=== PATIENT | female | born 1955 | race Caucasian/White ===

== ENCOUNTER 2022-12-01 10:34 | Outpatient (CLI) | payer OTHER ==
--- NOTE | 2022-12-01 12:46 | Mammography Report ---
UNILATERAL RIGHT DIGITAL DIAGNOSTIC MAMMOGRAM 3D/2D WITH SPOT COMPRESSION: 12/01/2022 CLINICAL: Patient returns today to evaluate an architectural distortion in the right breast. Comparison is made to exams dated: 10/17/2017 mammogram, 03/31/2016 mammogram, 10/24/2014 mammogram, a nd 03/18/2013 mammogram - [facility]. There are scattered areas of fibroglandular density in the right breast (category b / 25%-50% glandul ar tissue). There is a new architectural distortion in the right breast at 9 o'clock middle depth. No other significant masses or calcifications are seen in the breast. IMPRESSION: SUSPICIOUS OF MALIGNANCY The new architectural distortion in the right breast is suspicious of malignancy. A stereotactic bio psy is recommended. Based on the Tyrer Cuzick model (a risk assessment model) the patients lifetime risk is 12.7% and he r 10 year risk is 6.4%. According to the ACR, ACS, and NCCN guidelines, an annual breast MRI exam graham ng with mammogram is recommended if the patients lifetime risk is 20% or greater. This exam was interpreted at Station ID: [id number]. NOTE: For mammograms, a report in lay terms will be sent to the patient. Approximately 15% of breast malignancies will not be visualized mammographically. In the management of a palpable breast mass, a negative mammogram must not discourage biopsy of a clinically suspicious lesion. Electronically Signed By: Jose E Patterson M.D., jr/marla:12/01/2022 11:24:04 ACR BI-RADS Category 4: Suspicious abnormality 3344F PARENCHYMAL PATTERN: (A) - The breast(s) demonstrate(s) scattered fibroglandular densities. BI-RADS CATEGORY: (4) - 4 Biopsy [id number] Immediate follow-up LATERALITY: (R)
== END 2022-12-01 10:35 | disposition home or self-care (01) ==
LOC: DI 10:34
PROVIDERS: ATTEND Nurse Practitioner Family
DX: R92.8 Other abnormal and inconclusive findings on diagnostic imaging of breast (principal)

== ENCOUNTER 2022-12-13 07:49 | Outpatient (CLI) | payer OTHER ==
[2022-12-13] MEDS ORDERED: LIDOCAINE-MPF 1% 5 ML VIAL ONE (08:08)
[2022-12-13] MEDS ORDERED: LIDOCAINE 1%-EPI 1:100000 20 ML MDV ONE (08:08)
[2022-12-13] MEDS ORDERED: LIDOCAINE-MPF 1% 5 ML VIAL SUBQ STA (10:09)
[2022-12-13] MEDS ORDERED: LIDOCAINE 1%-EPI 1:100000 20 ML MDV SUBQ ONE (10:19)
--- NOTE | 2022-12-16 13:17 | Mammography Report ---
STEREOTACTIC GUIDED BIOPSY RIGHT BREAST USING VACUUM DEVICE WITH MARKING DEVICE INSERTED- POST-PROCED URE IMAGING FOR MARKER PLACEMENT: 12/13/2022 CLINICAL: Right breast stereotactic biopsy. Correlation is made to exams dated: 12/01/2022 mammogram, 11/09/2022 mammogram - [facility], 10/17/2017 mammogram, and 03/31/2016 mammogram - [facility]. A stereotactic guided biopsy was performed for the area of architectural distortion located in the ri ght breast at 9-10 o'clock middle depth. This was described on the previous mammography report. The skin was prepped in the usual manner. Local anesthetic was administered to the access site. A skin louis was made in the breast. The abnormality was approached from the lateral aspect. A 9 gauge bio psy needle was placed adjacent to the abnormality under computer guidance and confirmatory stereotact ic mammography images were obtained to document needle placement. Once the needle was documented to be in the correct location, five specimens were obtained using a vacuum assisted device. A clip was inserted into the biopsy cavity. Post procedure imaging demonstrates the location device at the targ eted area. The specimens were sent to the laboratory for pathological analysis. IMPRESSION: STEREOTACTIC GUIDED BIOPSY BENIGN Stereotactic guided biopsy of the area of architectural distortion in the right breast at 10 o'clock middle depth was successful. Pathology indicates sclerosing adenosis with microcalcifications. This is concordant with imaging appearance. Return to annual screening mammography schedule recommended. This exam was interpreted at Station ID: [id number]. Daryl dominguez jr/:12/16/2022 11:22:53 BI-RADS CATEGORY: () - Mammogram [id number] return to screening LATERALITY: (B)
== END 2022-12-13 07:50 | disposition home or self-care (01) ==
LOC: DI 07:49
PROVIDERS: ATTEND Nurse Practitioner Family
DX: R92.0 Mammographic microcalcification found on diagnostic imaging of breast (principal); R92.1 Mammographic calcification found on diagnostic imaging of breast
CPT/HCPCS: 19081